=== PATIENT | female | born 1985 | race Caucasian/White ===

== ENCOUNTER → 2019-12-10 11:56 | Outpatient (BNVA) | payer SELFPAY | PROVIDERS: Visit Provider Nurse Practitioner | DX: R05 Cough (principal); J01.90 Acute sinusitis, unspecified | CPT/HCPCS: 87804 ==

== ENCOUNTER → 2020-07-08 13:06 | Outpatient (BNVA) | payer OTHER, SELFPAY | PROVIDERS: Visit Provider Nurse Practitioner Family | DX: Z11.59 Encounter for screening for other viral diseases (principal); J06.9 Acute upper respiratory infection, unspecified | CPT/HCPCS: 87635 ==

== ENCOUNTER → 2020-07-22 16:00 | Outpatient (BNVA) | payer OTHER, SELFPAY | PROVIDERS: Visit Provider Nurse Practitioner Family | DX: Z11.59 Encounter for screening for other viral diseases (principal); J06.9 Acute upper respiratory infection, unspecified | CPT/HCPCS: 87635 ==

== ENCOUNTER → 2020-09-25 15:07 | Outpatient (BNVA) | payer OTHER, SELFPAY | PROVIDERS: Visit Provider Nurse Practitioner | DX: Z20.828 Contact with and (suspected) exposure to other viral communicable diseases (principal) | CPT/HCPCS: 87635 ==

== ENCOUNTER → 2021-03-24 11:30 | Outpatient (BNVA) | payer OTHER, SELFPAY | PROVIDERS: Visit Provider Nurse Practitioner Family | DX: Z20.828 Contact with and (suspected) exposure to other viral communicable diseases (principal) | CPT/HCPCS: 87635 ==

== ENCOUNTER 2021-03-31 06:05 | Emergency (ER) | payer SELFPAY ==
[2021-03-31 06:18] VITALS: BP 111/70; PULSE 112; RESP 23; TEMP 37.2; O2SAT 97; BMI 46.9
[2021-03-31 06:23] VITALS: O2SAT 97
--- NOTE | 2021-03-31 06:24 | XRR_ITS ---
PROCEDURE INFORMATION: Exam: XR Chest Exam date and time: 03/31/2021 6:24 AM Age: 35 years old Clinical indication: Cough and dyspnea; Patient HX: SOB, coughing x 1 week, covid +; Additional info: Dyspnea/cough TECHNIQUE: Imaging protocol: XR of the chest. Views: 1 view. COMPARISON: CR Chest 2 views* [id number] 08/24/2019 9:47 AM FINDINGS: Lungs: No consolidation. Pleural spaces: Unremarkable. No pleural effusion. No pneumothorax. Heart/Mediastinum: No cardiomegaly. Bones/joints: No acute fracture. XR/XR chest 1V portable [id number] IMPRESSION: No acute findings.
--- NOTE | 2021-03-31 06:36 | W.ED.COVID ---
HPI - COVID General: Chief Complaint: COVID symptoms Stated Complaint: COVID +/HAVING TROUBLE BREATHING Time Seen by Provider: 03/31/21 06:16 Triage information: Has fever, cough or shortness of breath. Exposure to COVID + person last 14 days History of Present Illness: HPI Narrative: 35-year-old female presents emergency room with complaint of shortness of breath. She began having Covid symptoms 9 days ago. She tested +5 days ago. She is not currently taking any treatment she does use albuterol as needed she has a history of asthma she feels like the albuterol is not helping. When I first came to see the patient she is hyperventilating. MD complaint: known COVID positive Prior covid testing: yes, results known Prior testing date: 03/26/21 COVID 19 common symptoms: positive fever(s), chills, cough, non-productive cough, dyspnea, fatigue, body aches, headache(s), loss of sense of smell and/or taste, throat pain, nasal congestion and nausea COVID 19 other sytmptoms: positive chest pain and pleuritic pain; negative requiring oxygen Onset (ago): day(s) (9) Severity: mild Pertinent comorbid conditions: COPD/respiratory disease Treatment prior to arrival: acetaminophen and breathing treatments COVID Results: SARS-CoV-2 RNA (RT-PCR) Detected (NOT DETECTED) A 03/24/21 11:30 03/24/21 Review of Systems Const: Reports: fever(s), chills, body aches and fatigue ENMT: Reports: throat pain and nasal congestion Card: Reports: chest pain and dyspnea on exertion; Denies: edema or orthopnea Resp: Reports: dyspnea and non-productive cough GI: Reports: nausea : Denies: flank pain, difficulty voiding, dysuria, urinary frequency or urinary urgency Skin/Breast: Denies: rash or pruritus Neuro: Reports: headache(s) PFSH ED PFSH: Medical History (Updated 03/31/21 @ 06:40 by Josh Walter DO) Asthma exacerbation Social History Smoking and tobacco status: never smoked Alcohol intake: never Female Reproductive History: Date of last menstrual period: 03/20/21 Physical Exam Const: COMMON NORMALS: no acute distress GENERAL APPEARANCE: cooperative ORIENTATION/CONSCIOUSNESS: Yes awake, Yes oriented to person, Yes oriented to place and Yes oriented to time HENMT: COMMON NORMALS: normocephalic, atraumatic and hearing grossly normal bilaterally HEAD & SCALP: normocephalic and atraumatic Neck/C-Spine: COMMON NORMALS: no JVD Resp: COMMON NORMALS: normal respiratory effort, No retractions, No use of accessory muscles and clear to auscultation bilaterally AUSCULTATION: clear to auscultation bilaterally Cardio: COMMON NORMALS: no JVD, regular rate, regular rhythm and No murmurs present (Cardio) RATE: regular rate RHYTHM: regular rhythm GI: COMMON NORMALS: Soft to palpation and No hepatosplenomegaly present AUSCULTATION: Yes normoactive bowel sounds PALPATION: Yes Soft to palpation, No Tenderness to palpation present (GI), No Guarding due to palpation present (GI) and Yes No hepatosplenomegaly present Extremity: COMMON NORMALS: normal to inspection, capillary refill normal, no clubbing, cyanosis or edema, no calf tenderness and no pedal edema Neuro: SENSORIUM/ORIENTATION: Yes oriented to person, Yes oriented to place and Yes oriented to time Skin: COMMON NORMALS: no rashes or lesions noted GENERAL SKIN EXAM: no rashes or lesions noted Course Vital Signs: Vital signs: Vital Signs Temperature 99.9 F H 03/31/21 08:11 Pulse Rate 103 H 03/31/21 08:11 Respiratory Rate 20 H 03/31/21 08:11 Blood Pressure 121/77 03/31/21 08:11 Pulse Oximetry 95 03/31/21 08:11 MDM - COVID MDM Narrative: Medical decision making narrative: Patient has symptoms typical of Covid she is very stable lung sounds are actually normal at this point. At the moment she is hyperventilating. Coached patient on her hyperventilation. She does qualify for monoclonal antibody infusion discussed risk benefits alternatives with her she wishes to proceed we will infuse now. COVID Results: SARS-CoV-2 RNA (RT-PCR) Detected (NOT DETECTED) A 03/24/21 11:30 03/24/21 Monoclonal Antibody Treatments Inclusion/Exclusion Criteria weight >/= 40 kg and + direct Sars-Cov-2 test less than 7-10 days ago BMI >/= 35 not requiring hospitalization, not requiring oxygen (if not chronically on oxygen) and no increase oxygen requirement (if chronically on oxygen) Patient education patient/family/caregiver received/reviewed fact sheet, Emergency Use Authorization/unapproved drug status discussed with patient/family/caregiver, alternatives to this treatment discussed with patient/family/caregiver, risks and benefits of medication reviewed with patient/family/caregiver, patient/family/caregiver given opportunity for questions, which were answered and patient consents to receiving Monoclonal Antibody Treatment Plan for treatment Meets criteria for Monoclonal Antibody infusion Ordering Monoclonal Antibody infusion for today Discharge Plan Discharge Patient Disposition: Home Condition: Stable Prescriptions: New dexamethasone 6 mg tablet 6 mg PO DAILY Qty: 7 RF: 0 No Action albuterol sulfate 2.5 mg /3 mL (0.083 %) solution for nebulization 2.5 mg continuous nebulization ONCE Qty: 1 RF: 0 albuterol sulfate [Ventolin HFA] 90 mcg/actuation HFA aerosol inhaler 2 puff INHALATION QID PRN (Reason: shortness of breath or wheezing) Qty: 8.5 RF: 0 Discharge Orders: Discharge ED (Routine); Ordered 03/31/21 Ordered By: Josh Walter Patient Instructions: Opioid Safety Coding Level of Care Code ED [facility] Demonstrator for Chg Fwd Exam Comprehensive
[2021-03-31 07:31] VITALS: BP 102/69; PULSE 100; RESP 15; O2SAT 97
[2021-03-31 08:11] VITALS: BP 121/77; PULSE 103; RESP 20; TEMP 37.7; O2SAT 95
[2021-03-31 08:37] VITALS: BP 126/62; PULSE 95; RESP 17; TEMP 37.7; O2SAT 97
[2021-03-31 09:41] VITALS: BP 130/72; PULSE 112; RESP 17; O2SAT 97
== END 2021-03-31 09:46 | disposition home or self-care (01) ==
PROVIDERS: Emergency Provider Family Medicine
DX: R06.02 Shortness of breath (principal)
CPT/HCPCS: 71045; 96365; 99284; J7050

== ENCOUNTER → 2021-07-09 12:04 | Outpatient (BNVA) | payer SELFPAY | PROVIDERS: Visit Provider Family Medicine | DX: F41.1 Generalized anxiety disorder (principal); F41.0 Panic disorder [episodic paroxysmal anxiety]; L65.9 Nonscarring hair loss, unspecified; Z68.43 Body mass index [BMI] 50.0-59.9, adult; Z13.6 Encounter for screening for cardiovascular disorders; Z13.220 Encounter for screening for lipoid disorders; Z76.89 Persons encountering health services in other specified circumstances | CPT/HCPCS: 80053; 80061; 83036; 84443; 85025 ==

== ENCOUNTER → 2021-07-29 13:01 | Outpatient (BNVA) | payer SELFPAY | PROVIDERS: Visit Provider Nurse Practitioner | DX: J02.9 Acute pharyngitis, unspecified (principal) | CPT/HCPCS: 87880 ==

== ENCOUNTER → 2021-09-29 15:41 | Outpatient (BNVA) | payer OTHER, SELFPAY | PROVIDERS: PCP Family Medicine; Visit Provider Family Medicine | DX: Z20.822 Contact with and (suspected) exposure to COVID-19 (principal); Z20.828 Contact with and (suspected) exposure to other viral communicable diseases | CPT/HCPCS: 87635 ==

== ENCOUNTER 2021-11-24 07:36 | Emergency (ER) | payer SELFPAY ==
[2021-11-24 07:44] VITALS: BMI 52.7
[2021-11-24 07:47] VITALS: BP 156/69; PULSE 84; RESP 16; TEMP 36.8; O2SAT 95
--- NOTE | 2021-11-24 07:47 | ED_ITS ---
Documented by User: ARLIN Perez 11/24/21 13:00 HPI - Abdominal Pain General: Chief Complaint: Abdominal Pain Stated Complaint: abdomen pain Time Seen by Provider: 11/24/21 07:47 Source: patient Mode of arrival: ambulatory Limitations: no limitations History of Present Illness: Patient is a 36-year-old female who presents to ED today along with her significant other for concerns of lower abdominal/pelvic pain that began in the middle of the night and awoke her from sleep. She describes the sensation as a burning sensation across her lower abdomen and pelvis. She denies dysuria, frequency, urgency, hematuria. No flank pain. Patient is not having any vaginal bleeding, vaginal odor/discharge, or painful intercourse. LMP was at the beginning of this month and described as normal. Patient has the Essure permanent control device that was placed approxim ately 9 years ago. She has not noticed any fevers, chills, body aches. No rash or lesions. She feels slightly nauseous but has not had any episodes of emesis. No changes to bowel movements. MD elicited complaint: abdominal pain Pertinent past history: none Onset (ago): hour(s) Location: RLQ, LLQ, Suprapubic and Pelvis Quality: burning Radiation: none Migration to: no migration Exacerbating factors: movement and other (certain positions) Relieving factors: other (states curling her legs up into a ball seems to slightly help) Associated Symptoms: Reports nausea; Denies change in bowel habits, change in stool character, chills, diarrhea, dysuria, fever(s), heartburn, hematuria and vomiting Related Data: Date of Last Menstrual Period: 11/06/21 Review of Systems Const: Denies: fever(s), chills, body aches, fatigue or malaise Card: Denies: chest pain Resp: Denies: dyspnea GI: Reports: abdominal pain and nausea; Denies: vomiting, heartburn, diarrhea, change in bowel habits, pain on defec ation or change in stool character : Denies: flank pain, difficulty voiding, dysuria, urinary frequency, urinary urgency, hematuria, genital lesions, genital pruritis, vaginal odor, vaginal bleeding, vaginal discharge or metrorrhagia Musc: Denies: neck pain, back pain, extremity pain or joint pain Skin/Breast: Denies: rash Neuro: Denies: headache(s), numbness in extremities, weakness in extremities or sensory changes [facility] ED PFSH: Medical History (Updated 11/24/21 @ 11:28 by ARLIN Perez) Asthma exacerbation Establishing care with new doctor, encounter for Social History Smoking and tobacco status: never smoked Alcohol intake: never Female Reproductive History: Date of last menstrual period: 11/06/21 Physical Exam Const: COMMON NORMALS: patient oriented x3, no limitations and alert GENERAL APPEARANCE: in distress (appears slightly uncomfortable secondary to pain) NUTRITIONAL APPEARANCE: obese morbidly obese (BMI > 52) ORIENTATION/CONSCIOUSNESS: Yes awake, Yes oriented to person, Yes oriented to place and Yes oriented to time HENMT: COMMON NORMALS: normocephalic and atraumatic HEAD & SCALP: normocephalic and atraumatic Resp: COMMON NORMALS: normal respiratory effort and clear to auscultation bilaterally AUSCULTATION: clear to auscultation bilaterally Cardio: COMMON NORMALS: regular rate and regular rhythm RATE: regular rate RHYTHM: regular rhythm GI: COMMON NORMALS: Normal to inspection, nondistended, normoactive bowel so unds present, Soft to palpation, No hepatosplenomegaly present and no masses INSPECTION: Yes normal to inspection PALPATION: Yes Soft to palpation, Yes Tenderness to palpation present (GI) (throughout lower abdomen), No Guarding due to palpation present (GI), No Rigid due to palpation and Yes No hepatosplenomegaly present : COMMON NORMALS: Yes no CVA tenderness BLADDER/KIDNEY EXAM: Yes no CVA tenderness Back/Pelvis: COMMON NORMALS: no CVA tenderness, thoracic and lumbar spine normal to inspection, no thoracic nor lumbar tenderness and thoraco-lumbar ROM normal Extremity: COMMON NORMALS: normal to inspection GENERAL: Yes normal exam except as noted Neuro: ELIJAH COMA SCALE: document GCS findings Elijah coma scale eye opening: Spontaneous [place] coma scale verbal response: Orientated Elijah coma scale motor response: Obey commands Elijah coma scale total score: 15 COMMON NORMALS: patient oriented x3, moves all extremities, no focal motor deficits, no sensory deficits noted and gait normal SENSORIUM/ORIENTATION: Yes alert, Yes oriented to person, Yes oriented to place and Yes oriented to time Skin: COMMON NORMALS: no rashes or lesions noted GENERAL SKIN EXAM: no rashes or lesions noted Course Vital Signs: Vital signs: Vital Signs Temperature 98.2 F 11/24/21 07:47 Pulse Rate 74 11/24/21 11:41 Respiratory Rate 16 11/24/21 11:41 Blood Pressure 123/65 11/24/21 11:41 Pulse Oximetry 95 11/24/21 11:41 MDM - Abdominal Pain Medical Decision Making Patient's vital signs are stable. Lab work including CBC, CMP, UA, are overall unremarkable. She has a normal white count. UA does not appear infected. US transvaginal showing a left ovarian cyst. Did not visualize right ovary. CT scan overall is normal. Incidental findings of hepatomegaly and a small umbilical hernia. I did speak to Dr. Sánchez as they could not visualize right ovary on the ultrasound. She was able to visualize ovary on CT imaging and did not see any findings that would suggest torsion. At this point juve mmend close observation of symptoms at home and strict return to ED precautions verbally given to patient. Otherwise recommended follow-up with PCP this week. Lab Data : 11/24/21 08:42 11/24/21 08:42 Labs/Radiology: Radiology Impressions Transvaginal US 11/24/21 08:02 IMPRESSION: 1. Normal uterus. Endometrium measures 7.1 mm. 2. Simple LEFT ovarian cyst measuring 1.7 x 2.0 x 1.5 cm 3. RIGHT ovary not visualized Abdomen/Pelvis CT 11/24/21 09:12 IMPRESSION: 1. Normal appendix. 2. No GI tract obstruction or acute inflammation. 3. No free air or free fluid. 4. Prior cholecystectomy. 5. Moderate hepatomegaly. 6. Small fat-containing umbilical hernia. 7. Prior Essure inserts. Laboratory Results WBC 8.7 10^3/uL (4.0-10.0) 11/24/21 08:42 RBC 4.60 10^6/uL (4.1-5.3) 11/24/21 08:42 Hgb 13.3 g/dL (11.5-15.3) 11/24/21 08:42 Hct 40.9 % (37.0-47.0) 11/24/21 08:42 MCV 88.9 fl (81-99) 11/24/21 08:42 MCH 28.9 pg (28.0-34.0) 11/24/21 08:42 MCHC 32.5 g/dL (30.0-36.0) 11/24/21 08:42 RDW 13.2 % (12.1-15.1) 11/24/21 08:42 Plt Count 292 10^3/cmm (130-400) 11/24/21 08:42 MPV 11.4 fL (7.4-10.4) H 11/24/21 08:42 Neut % (Auto) 58.8 % 11/24/21 08:42 Lymph % (Auto) 32.3 % 11/24/21 08:42 [place] % (Auto) 6.2 % 11/24/21 08:42 Eos % (Auto) 1.6 % 11/24/21 08:42 Baso % (Auto) 0.6 % 11/24/21 08:42 Neut # (Auto) 5.10 10^3/uL (1.8-7.7) 11/24/21 08:42 Lymph # (Auto) 2.8 10^3/uL (0.8-4.8) 11/24/21 08:42 [place] # (Auto) 0.5 10^3/uL (0.2-0.9) 11/24/21 08:42 Eos # (Auto) 0.1 10^3/uL (0.0-0.8) 11/24/21 08:42 Baso # (Auto) 0.1 10^3/uL (0.0-0.1) 11/24/21 08:42 Nucleated RBC % (auto) 0 % 11/24/21 08:42 Nucleated RBCs # 0.0 /100WBC 11/24/21 08:42 Sodium 137 mmol/L (136-145) 11/24/21 08:42 Potassium 4.1 mmol/L (3.5-5.1) 11/24/21 08:42 Chloride 104 mmol/L (98-107) 11/24/21 08:42 Carbon Dioxide 21 mmol/L (22-29) L 11/24/21 08:42 Anion Gap 16.1 (5-19) 11/24/21 08:42 BUN 9 mg/dL (6-20) 11/24/21 08:42 Creatinine 0.4 mg/dL (0.5-0.9) L 11/24/21 08:42 GFR Calculation 182.7 mL/min (90-130) H 11/24/21 08:42 Glucose 104 mg/dL (65-115) 11/24/21 08:42 Calculated Osmolality 283 mOsm/kg (285-295) L 11/24/21 08:42 Calcium 9.4 mg/dL (8.5-10.5) 11/24/21 08:42 Total Bilirubin 0.3 mg/dL (0.15-1.2) 11/24/21 08:42 AST 22 U/L (0-32) 11/24/21 08:42 ALT 34 U/L (0-33) H 11/24/21 08:42 Alkaline Phosphatase 117 IU/L (35-105) H 11/24/21 08:42 Total Protein 7.3 g/dL (6.6-8.7) 11/24/21 08:42 Albumin 4.3 g/dL (3.5-5.2) 11/24/21 08:42 Globulin 3.0 g/dL (1.3-4.6) 11/24/21 08:42 HCG, Qual Negative (Negative) 11/24/21 08:42 Urine Color Straw (Yellow) 11/24/21 07:50 Urine Appearance Clear (CLEAR) 11/24/21 07:50 Urine pH 5 (5-7) 11/24/21 07:50 Ur Specific [place] 1.015 (1.005-1.030) 11/24/21 07:50 Urine Protein Neg (Negative) 11/24/21 07:50 Urine Glucose (UA) Norm (Normal) 11/24/21 07:50 Urine Ketones Negative (Negative) 11/24/21 07:50 Urine Blood Trace (Negative) H 11/24/21 07:50 Urine Nitrate Negative (Negative) 11/24/21 07:50 Urine Bilirubin Neg (Negative) 11/24/21 07:50 Urine Urobilinogen Norm mg/dL (Negative) 11/24/21 07:50 Ur Leukocyte Esterase Negative (Negative) 11/24/21 07:50 Urine RBC Rare /hpf (0-2) 11/24/21 07:50 Urine WBC None /hpf (0-5) 11/24/21 07:50 Ur Squamous Epith Cells 5-10 /hpf (0-5) H 11/24/21 07:50 Amorphous Sediment Not Reportable 11/24/21 07:50 Urine Bacteria Trace /hpf (NONE) 11/24/21 07:50 Discharge Plan Discharge Patient Disposition: Home Clinical Impression: Lower abdominal pain of unknown etiology Condition: Stable Prescriptions: New Zofran 4 mg tablet 4 mg PO Q6H PRN (Reason: nausea and vomiting) Qty: 14 0RF No Action meclizine 25 mg tablet 25 mg PO BID PRN (Reason: dizziness) Qty: 10 0RF citalopram 20 mg tablet 20 mg PO DAILY Qty: 30 5RF Pepcid 20 mg Tablet 20 mg PO BID 0RF Discharge Orders: Discharge ED (Routine); Ordered 11/24/21 Ordered By: Destiny Hill Referrals: Ermias Hsu DO [Primary Care Provider] - Patient Instructions: Abdominal Pain (ED) Activity Restrictions/Additional Instructions: As we discussed please follow-up with your primary care provider this week if symptoms persist. You need to return to the emergency department for worsening lower abdominal/pelvic pain, fevers greater than 100.4, repetitive episodes of vomiting or diarrhea, blood in your vomit or stools, generally feeling unwell, or any other concerns you may have. I hope you begin to feel better soon. Coding Level of Care Code ED Berry Picker for Chg Fwd Exam Comprehensive Documented by User: Josh Walter DO 11/24/21 13:47 HPI - Abdominal Pain General: Chief Complaint: Abdominal Pain Stated Complaint: abdomen pain Time Seen by Provider: 11/24/21 07:47 [facility] ED PFSH: Medical History (Updated 11/24/21 @ 11:28 by ARLIN Perez) Asthma exacerbation Establishing care with new doctor, encounter for Social History Smoking and tobacco status: never smoked Alcohol intake: never Physical Exam Neuro: ELIJAH COMA SCALE: document GCS findings [place] coma scale total score: 15 Course Vital Signs: Vital signs: Vital Signs Temperature 98.2 F 11/24/21 07:47 Pulse Rate 74 11/24/21 11:41 Respiratory Rate 16 11/24/21 11:41 Blood Pressure 123/65 11/24/21 11:41 Pulse Oximetry 95 11/24/21 11:41 MDM - Abdominal Pain Medical Decision Making Patient's vital signs are stable. Lab work including CBC, CMP, UA, are overall unremarkable. She has a normal white count. UA does not appear infected. US transvaginal showing a left ovarian cyst. Did not visualize right ovary. CT scan overall is normal. Incidental findings of hepatomegaly and a small umbilical hernia. I did speak to Dr. Sánchez as they could not visualize right ovary on the ultrasound. She was able to visualize ovary on CT imaging and did not see any findings that would suggest torsion. At this point recommend close observation of symptoms at home and strict return to ED precautions verbally given to patient. Otherwise recommended follow-up with PCP this week. Chart reviewed and patient discussed with midlevel. Agree with assessment and plan. Lab Data : 11/24/21 08:42 11/24/21 08:42 Labs/Radiology: Radiology Impressions Transvaginal US 11/24/21 08:02 IMPRESSION: 1. Normal uterus. Endometrium measures 7.1 mm. 2. Simple LEFT ovarian cyst measuring 1.7 x 2.0 x 1.5 cm 3. RIGHT ovary not visualized Abdomen/Pelvis CT 11/24/21 09:12 IMPRESSION: 1. Normal appendix. 2. No GI tract obstruction or acute inflammation. 3. No free air or free fluid. 4. Prior cholecystectomy. 5. Moderate hepatomegaly. 6. Small fat-containing umbilical hernia. 7. Prior Essure inserts. Laboratory Results WBC 8.7 10^3/uL (4.0-10.0) 11/24/21 08:42 RBC 4.60 10^6/uL (4.1-5.3) 11/24/21 08:42 Hgb 13.3 g/dL (11.5-15.3) 11/24/21 08:42 Hct 40.9 % (37.0-47.0) 11/24/21 08:42 MCV 88.9 fl (81-99) 11/24/21 08:42 MCH 28.9 pg (28.0-34.0) 11/24/21 08:42 MCHC 32.5 g/dL (30.0-36.0) 11/24/21 08:42 RDW 13.2 % (12.1-15.1) 11/24/21 08:42 Plt Count 292 10^3/cmm (130-400) 11/24/21 08:42 MPV 11.4 fL (7.4-10.4) H 11/24/21 08:42 Neut % (Auto) 58.8 % 11/24/21 08:42 Lymph % (Auto) 32.3 % 11/24/21 08:42 [place] % (Auto) 6.2 % 11/24/21 08:42 Eos % (Auto) 1.6 % 11/24/21 08:42 Baso % (Auto) 0.6 % 11/24/21 08:42 Neut # (Auto) 5.10 10^3/uL (1.8-7.7) 11/24/21 08:42 Lymph # (Auto) 2.8 10^3/uL (0.8-4.8) 11/24/21 08:42 [place] # (Auto) 0.5 10^3/uL (0.2-0.9) 11/24/21 08:42 Eos # (Auto) 0.1 10^3/uL (0.0-0.8) 11/24/21 08:42 Baso # (Auto) 0.1 10^3/uL (0.0-0.1) 11/24/21 08:42 Nucleated RBC % (auto) 0 % 11/24/21 08:42 Nucleated RBCs # 0.0 /100WBC 11/24/21 08:42 Sodium 137 mmol/L (136-145) 11/24/21 08:42 Potassium 4.1 mmol/L (3.5-5.1) 11/24/21 08:42 Chloride 104 mmol/L (98-107) 11/24/21 08:42 Carbon Dioxide 21 mmol/L (22-29) L 11/24/21 08:42 Anion Gap 16.1 (5-19) 11/24/21 08:42 BUN 9 mg/dL (6-20) 11/24/21 08:42 Creatinine 0.4 mg/dL (0.5-0.9) L 11/24/21 08:42 GFR Calculation 182.7 mL/min (90-130) H 11/24/21 08:42 Glucose 104 mg/dL (65-115) 11/24/21 08:42 Calculated Osmolality 283 mOsm/kg (285-295) L 11/24/21 08:42 Calcium 9.4 mg/dL (8.5-10.5) 11/24/21 08:42 Total Bilirubin 0.3 mg/dL (0.15-1.2) 11/24/21 08:42 AST 22 U/L (0-32) 11/24/21 08:42 ALT 34 U/L (0-33) H 11/24/21 08:42 Alkaline Phosphatase 117 IU/L (35-105) H 11/24/21 08:42 Total Protein 7.3 g/dL (6.6-8.7) 11/24/21 08:42 Albumin 4.3 g/dL (3.5-5.2) 11/24/21 08:42 Globulin 3.0 g/dL (1.3-4.6) 11/24/21 08:42 HCG, Qual Negative (Negative) 11/24/21 08:42 Urine Color Straw (Yellow) 11/24/21 07:50 Urine Appearance Clear (CLEAR) 11/24/21 07:50 Urine pH 5 (5-7) 11/24/21 07:50 Ur Specific [place] 1.015 (1.005-1.030) 11/24/21 07:50 Urine Protein Neg (Negative) 11/24/21 07:50 Urine Glucose (UA) Norm (Normal) 11/24/21 07:50 Urine Ketones Negative (Negative) 11/24/21 07:50 Urine Blood Trace (Negative) H 11/24/21 07:50 Urine Nitrate Negative (Negative) 11/24/21 07:50 Urine Bilirubin Neg (Negative) 11/24/21 07:50 Urine Urobilinogen Norm mg/dL (Negative) 11/24/21 07:50 Ur Leukocyte Esterase Negative (Negative) 11/24/21 07:50 Urine RBC Rare /hpf (0-2) 11/24/21 07:50 Urine WBC None /hpf (0-5) 11/24/21 07:50 Ur Squamous Epith Cells 5-10 /hpf (0-5) H 11/24/21 07:50 Amorphous Sediment Not Reportable 11/24/21 07:50 Urine Bacteria Trace /hpf (NONE) 11/24/21 07:50 Discharge Plan Discharge Patient Disposition: Home Clinical Impression: Lower abdominal pain of unknown etiology Condition: Stable Prescriptions: New Zofran 4 mg tablet 4 mg PO Q6H PRN (Reason: nausea and vomiting) Qty: 14 0RF No Action meclizine 25 mg tablet 25 mg PO BID PRN (Reason: dizziness) Qty: 10 0RF citalopram 20 mg tablet 20 mg PO DAILY Qty: 30 5RF Pepcid 20 mg Tablet 20 mg PO BID 0RF Discharge Orders: Discharge ED (Routine); Ordered 11/24/21 Ordered By: Destiny Hill Referrals: Ermias Hsu DO [Primary Care Provider] - Patient Instructions: Abdominal Pain (ED) Activity Restrictions/Additional Instructions: As we discussed please follow-up with your primary care provider this week if s ymptoms persist. You need to return to the emergency department for worsening lower abdominal/pelvic pain, fevers greater than 100.4, repetitive episodes of vomiting or diarrhea, blood in your vomit or stools, generally feeling unwell, or any other concerns you may have. I hope you begin to feel better soon. Coding Level of Care Code ED Berry Picker for Diane Fwd Exam Comprehensive
--- NOTE | 2021-11-24 08:02 | US_ITS ---
WS: [id number] ULTRASOUND PELVIS TECHNIQUE: Transvaginal. CLINICAL INFORMATION: pelvic pain LMP: : No. COMPARISON: None. FINDINGS: Uterus Orientation: Anteverted. Size: 10.0 x 4.1 x 4.8 cm Masses: None. Cervix: Normal. Endometrium: Normal. Endometrium thickness: 7.1 mm. Adnexa: RIGHT ovary not visualized. Simple LEFT ovarian cyst measuring 1.7 x 2.0 x 1.5 cm Left ovary size: 3.3 x 3.1 x 2.6 cm Free fluid: None. Other findings: None. US/US transvaginal [id number] IMPRESSION: 1. Normal uterus. Endometrium measures 7.1 mm. 2. Simple LEFT ovarian cyst measuring 1.7 x 2.0 x 1.5 cm 3. RIGHT ovary not visualized
[2021-11-24 08:21] LABS: Add Urine Culture? No; Add Urine Microscopic? YES; Bacteria Urine TRACE /hpf; Bilirubin Urine Neg (Negative); Blood Urine Trace (Negative); Glucose Urine UA Norm (Normal); Ketones Urine Negative (Negative); Leukocyte Esterase Urine Negative (Negative); Nitrate Urine Negative (Negative); Protein Urine Neg (Negative); RBC Urine RARE /hpf (0-2); Specific Gravity, Urine 1.015 (1.005-1.030); Urine Appearance Clear (CLEAR); Urine Color Straw (Yellow); Urobilinogen Urine Norm (Negative); pH Urine 5 (5-7)
[2021-11-24 08:50] LABS: Basophils # 0.1 10^3/uL (0.0-0.1); Basophils % 0.6 %; Eosinophils # 0.1 10^3/uL (0.0-0.8); Eosinophils % 1.6 %; Hematocrit 40.9 % (37.0-47.0); Hemoglobin 13.3 g/dL (11.5-15.3); Lymphocytes # 2.8 10^3/uL (0.8-4.8); Lymphocytes % 32.3 %; Mean Corpuscular HGB Conc 32.5 g/dL (30.0-36.0); Mean Corpuscular Hemoglobin 28.9 pg (28.0-34.0); Mean Corpuscular Volume 88.9 fl (81-99); Mean Platelet Volume 11.4 fL (7.4-10.4); Monocytes # 0.5 10^3/uL (0.2-0.9); Monocytes % 6.2 %; Neutrophils % 58.8 %; Nucleated Red Blood Cells % 0 %; Platelet Count 292 10^3/cmm (130-400); Red Cell Distribution Width 13.2 % (12.1-15.1); White Blood Count 8.7 10^3/uL (4.0-10.0)
--- NOTE | 2021-11-24 09:12 | CT_ITS ---
WS: [id number] CT ABDOMEN AND PELVIS WITH CONTRAST HISTORY: lower abdominal pain TECHNIQUE: Imaging performed of the abdomen and pelvis with IV contrast. Single phase imaging of the abdomen. Coronal and sagittal reformats are submitted. All CT scans at [facility] use at [address] one of these dose optimization techniques: automated exposure control; mA and/or kV adjustment per patient size (includes targeted exams where dose is matched to clinical indication); or iterative re construction. IV CONTRAST: Omnipaque 300; 95 mL IV. Oral contrast: No DLP: 1870.45 mGy.cm COMPARISON: 6 11/29/2016 Lower thorax: Lung bases are clear. Heart is normal size. No hiatal hernia. Liver/biliary system: Moderately enlarged liver measuring 20 cm in length. No bile duct dilatation or mass. Common bile duct is normal size. Gallbladder: Status post cholecystectomy. Pancreas: Normal size pancreas and pancreatic duct. No adjacent inflammation. Spleen: Normal size spleen. No mass or infarct. Posterior splenule. Adrenal glands: Normal. Right kidney: Normal. Left kidney: Normal. Aorta: Normal. Lymphadenopathy: None. Free fluid: None. GI tract: No appendicitis. The appendix is well identified and normal. Nondistended stomach. No small bowel or colon obstruction. No significant amount of increased fluid. Abdominal wall: Fat containing umbilical hernia. Pelvis: No there is a small amount of fluid along the endometrial canal. May be related to menses. LE FT ovarian follicle. No adenopathy. Free fluid in the pelvis. Uterus is anteverted. Bilateral a short Bones: Unremarkable. CT/CT abdomen pelvis w con* [id number] IMPRESSION: 1. Normal appendix. 2. No GI tract obstruction or acute inflammation. 3. No free air or free fluid. 4. Prior cholecystectomy. 5. Moderate hepatomegaly. 6. Small fat-containing umbilical hernia. 7. Prior Essure inserts.
[2021-11-24 09:15] LABS: Alanine Aminotransferase 34 U/L (0-33); Albumin Level 4.3 g/dL (3.5-5.2); Alkaline Phosphatase 117 IU/L (35-105); Anion Gap 16.1 (5-19); Aspartate Amino Transferase 22 U/L (0-32); Blood Urea Nitrogen 9 mg/dL (6-20); Calcium 9.4 mg/dL (8.5-10.5); Carbon Dioxide 21 mmol/L (22-29); Chloride 104 mmol/L (98-107); Glomerular Filtration Rate 182.7 mL/min (90-130); Glucose 104 mg/dL (65-115); Osmolality Calculated 283 mOsm/kg (285-295); Potassium 4.1 mmol/L (3.5-5.1); Sodium 137 mmol/L (136-145); Total Bilirubin 0.3 mg/dL (0.15-1.2); Total Protein 7.3 g/dL (6.6-8.7)
[2021-11-24 09:20] LABS: HCG, Serum Qual Negative (Negative)
[2021-11-24 09:31] VITALS: BP 121/63; PULSE 60; RESP 16; O2SAT 97
[2021-11-24 10:21] VITALS: BP 109/55; PULSE 68; RESP 18; O2SAT 95
[2021-11-24] MEDS: iohexol 300 mg/mL 100 mL Btl IV (10:52)
[2021-11-24 11:41] VITALS: BP 123/65; PULSE 74; RESP 16; O2SAT 95
== END 2021-11-24 11:42 | disposition home or self-care (01) ==
PROVIDERS: Emergency Provider Physician Assistant; PCP Family Medicine
DX: R10.30 Lower abdominal pain, unspecified (principal)
CPT/HCPCS: 74177; 76830; 80053; 81001; 84703; 85025; 99283; Q9967

== ENCOUNTER 2022-04-13 08:01 | Emergency (ER) | payer SELFPAY ==
[2022-04-13 08:08] VITALS: BP 143/74; PULSE 70; RESP 18; TEMP 36.6; O2SAT 98; BMI 52.6
[2022-04-13] MEDS: promethazine 25 mg/mL SDV 1 mL IM (08:39)
[2022-04-13] MEDS: ketorolac 30 mg/mL INJ IVP (08:39)
--- NOTE | 2022-04-13 08:40 | CT_ITS ---
WS: [id number] CT HEAD NONCONTRAST HISTORY: headache TECHNIQUE: Contiguous axial imaging performed through the brain in 2.5 mm imaging. Bone and soft tiss ue windows. Sagittal and coronal reformats reviewed. All CT scans at [facility] use at least one of these dose optimization techniques: automated exposure control; mA and/or kV adjustment per pa tient size (includes targeted exams where dose is matched to clinical indication); or iterative recon struction. DLP: 1109.48 mGy.cm COMPARISON: None available. No acute intracranial hemorrhage, midline shift or mass effect. No atrophy or prior infarcts or herniation. Ventricles: Normal size with no hydrocephalus. No inferior displacement of the cerebellar tonsils. Paranasal sinuses: As visualized are clear. Mastoid air cells: Well pneumatized. Calvarium and scalp: Skull is intact with no soft tissue edema or swelling. CT/CT head wo con* [id number] IMPRESSION: 1. No acute intracranial hemorrhage or edema. 2. No prior infarct. No mass effect.
[2022-04-13 08:43] VITALS: BP 155/58; PULSE 88; RESP 16; O2SAT 96
[2022-04-13] MEDS: sodium chloride 0.9% 1,000 ML 999 ML IV (08:54)
--- NOTE | 2022-04-13 09:11 | W.ED.HA ---
HPI - Headache General: Chief Complaint: Headache Stated Complaint: headache, dizziness, sob Time Seen by Provider: 04/13/22 08:13 Source: patient Mode of arrival: ambulatory Limitations: no limitations History of Present Illness: 36 yo female present with complaints of head ache and breif non-reponsive episode. she is complaining of bilateral forntal headache. No nausea or vomiting. She has been dizzy. She has a history of migraines states this is similar to migraine she had in the past but is more intense mild photophobia and autophobia. She has brief periods of time where she she is seems to blackout. She will be unable to respond for period time and then feels like she awakens again she cannot recall the events. MD elicited complaint: headache Pertinent past history: HIV Onset (ago): minute(s) Onset description: suddenly Location: frontal Severity: severe Quality & Timing: throbbing Exacerbating factors: light and noise Relieving factors: dark room Associated symptoms: Reports lightheadedness, photophobia and sound sensitivity; Deny chest pain, confusion, cough, diaphoresis, eye pain, eye redness, fever(s), loss of vision, malaise, nausea, neck stiffness, numbness, paresthesias, pre-syncope, rash, seizures, short of breath, syncope, vomiting or weakness Treatments prior to arrival: acetaminophen Review of Systems Const: Denies: fever(s), chills, fatigue, malaise or diaphoresis ENMT: Denies: throat pain, ear or mastoid pain, nasal discharge or nasal congestion Card: Reports: lightheadedness; Denies: chest pain, palpitations, syncope or pre-syncope Resp: Denies: dyspnea, productive cough or non-productive cough GI: Denies: abdominal pain, nausea or vomiting : Denies: flank pain, difficulty voiding, dysuria, urinary frequency or urinary urgency Musc: Denies: neck pain or back pain Skin/Breast: Denies: rash Neuro: Reports: headache(s); Denies: confusion PFSH ED PFSH: Medical History Asthma exacerbation Establishing care with new doctor, encounter for Social History Smoking and tobacco status: never smoked Alcohol intake: never Female Reproductive History: Date of last menstrual period: 11/06/21 Physical Exam Const: COMMON NORMALS: no acute distress GENERAL APPEARANCE: cooperative and comfortable ORIENTATION/CONSCIOUSNESS: Yes awake, Yes oriented to person, Yes oriented to place and Yes oriented to time HENMT: COMMON NORMALS: normocephalic, atraumatic, hearing grossly normal bilaterally, external ears normal, EAC's normal, TM's normal bilaterally, Normal nasal mucous membranes and turbinates present, moist oral mucous membranes and oropharynx normal HEAD & SCALP: normocephalic and atraumatic NOSE: Normal nasal mucous membranes and turbinates present EXTERNAL EAR: Yes external ears normal EXTERNAL AUDITORY CANAL: EAC's normal TYMPANIC MEMBRANE: TM's normal bilaterally Eye: COMMON NORMALS: Equal, round and reactive pupils present, EOMs intact bilaterally, conjunctivae normal and no scleral icterus CONJUNCTIVA: Yes conjunctivae normal PUPIL: Yes Equal, round and reactive pupils present DIRECT OPHTHALMOSCOPY: Yes photophobia Neck/C-Spine: COMMON NORMALS: full ROM, no lymphadenopathy, supple and no JVD Resp: COMMON NORMALS: normal respiratory effort, No retractions, No use of accessory muscles and clear to auscultation bilaterally AUSCULTATION: clear to auscultation bilaterally Cardio: COMMON NORMALS: no JVD, regular rate, regular rhythm and No murmurs present (Cardio) RATE: regular rate RHYTHM: regular rhythm GI: COMMON NORMALS: Soft to palpation and No hepatosplenomegaly present AUSCULTATION: Yes normoactive bowel sounds PALPATION: Yes Soft to palpation, No Tenderness to palpation present (GI), No Guarding due to palpation present (GI) and Yes No hepatosplenomegaly present Extremity: COMMON NORMALS: normal to inspection, capillary refill normal, no clubbing, cyanosis or edema, no calf tenderness and no pedal edema Neuro: SENSORIUM/ORIENTATION: Yes oriented to person, Yes oriented to place and Yes oriented to time Skin: COMMON NORMALS: no rashes or lesions noted GENERAL SKIN EXAM: no rashes or lesions noted Course Vital Signs: Vital signs: Vital Signs Temperature 98 F 04/13/22 08:08 Pulse Rate 58 L 04/13/22 10:46 Respiratory Rate 16 04/13/22 08:43 Blood Pressure 130/71 04/13/22 10:46 Pulse Oximetry 100 04/13/22 10:46 MDM - Headache Medical Decision Making Patient may very well be having absence seizure's. Her symptoms are improved now we will discharge her home follow-up with neurology set up outpatient EEG Medical Records I reviewed the patient's medical records. Lab Data : 04/13/22 09:21 04/13/22 09:[address] 04/13/22 08:40 IMPRESSION: 1. No acute intracranial hemorrhage or edema. 2. No prior infarct. No mass effect. Laboratory Results WBC 8.0 10^3/uL (4.0-10.0) 04/13/22 09:21 RBC 4.27 10^6/uL (4.1-5.3) 04/13/22 09:21 Hgb 12.3 g/dL (11.5-15.3) 04/13/22 09:21 Hct 38.2 % (37.0-47.0) 04/13/22 09:21 MCV 89.5 fl (81-99) 04/13/22 09:21 MCH 28.8 pg (28.0-34.0) 04/13/22 09:21 MCHC 32.2 g/dL (30.0-36.0) 04/13/22 09:21 RDW 13.1 % (12.1-15.1) 04/13/22 09:21 Plt Count 231 10^3/cmm (130-400) 04/13/22 09:21 MPV 11.4 fL (7.4-10.4) H 04/13/22 09:21 Neut % (Auto) 57.1 % 04/13/22 09:21 Lymph % (Auto) 33.3 % 04/13/22 09:21 [place] % (Auto) 7.3 % 04/13/22 09:21 Eos % (Auto) 1.5 % 04/13/22 09:21 Baso % (Auto) 0.5 % 04/13/22 09:21 Neut # (Auto) 4.54 10^3/uL (1.8-7.7) 04/13/22 09:21 Lymph # (Auto) 2.7 10^3/uL (0.8-4.8) 04/13/22 09:21 [place] # (Auto) 0.6 10^3/uL (0.2-0.9) 04/13/22 09:21 Eos # (Auto) 0.1 10^3/uL (0.0-0.8) 04/13/22 09:21 Baso # (Auto) 0.0 10^3/uL (0.0-0.1) 04/13/22 09:21 Nucleated RBC % (auto) 0 % 04/13/22 09:21 Nucleated RBCs # 0.0 /100WBC 04/13/22 09:21 Sodium 138 mmol/L (136-145) 04/13/22 09:21 Potassium 4.1 mmol/L (3.5-5.1) 04/13/22 09:21 Chloride 108 mmol/L (98-107) H 04/13/22 09:21 Carbon Dioxide 17 mmol/L (22-29) L 04/13/22 09:21 Anion Gap 17.1 (5-19) 04/13/22 09:21 BUN 13 mg/dL (6-20) 04/13/22 09:21 Creatinine 0.7 mg/dL (0.5-0.9) 04/13/22 09:21 GFR Calculation 95.8 mL/min (90-130) 04/13/22 09:21 Glucose 103 mg/dL (65-115) 04/13/22 09:21 Calculated Osmolality 286 mOsm/kg (285-295) 04/13/22 09:21 Calcium 8.3 mg/dL (8.5-10.5) L 04/13/22 09:21 Discharge Plan Discharge Patient Disposition: Home Clinical Impression: Migraine, Absence seizure Condition: Stable Prescriptions: No Action meclizine 25 mg tablet 25 mg PO BID PRN (Reason: dizziness) Qty: 10 0RF sumatriptan succinate 25 mg tablet See Rx Instructions PO .COMPLEX Qty: 10 3RF Rx Instructions: take 1 tab at onset of headache; if no relief may repeat 1 tab after at least 2 hrs; max = 4 tabs/24 hr PO topiramate [Topamax] 25 mg tablet 25 mg PO BID Qty: 60 2RF albuterol sulfate [Ventolin HFA] 90 mcg/actuation HFA aerosol inhaler 2 puff inhalation Q6H PRN (Reason: Shortness Of Breath) 0RF citalopram 20 mg tablet 20 mg PO DAILY Qty: 30 5RF famotidine [Pepcid] 20 mg Tablet 20 mg PO BID 0RF Advil 200 mg Tablet 200 mg PO Q6H PRN (Reason: Pain) 0RF Excedrin Migraine 250-250-65 mg Tablet 2 tab PO Q6H PRN (Reason: Migraine Headache) 0RF Discharge Orders: Discharge ED (Routine); Ordered 04/13/22 Ordered By: Josh Walter Referrals: Ermias Hsu DO [Primary Care Provider] - Discharge Diet: Usual diet Discharge Activity: Limit activity as instructed Patient Instructions: Opioid Safety Activity Restrictions/Additional Instructions: You may have had an absence seizure. You should not drive until this is fully evaluated. We will discharge her home and set up for an outpatient sleep deprived EEG and follow-up with neurology Coding Level of Care Code ED Mat Cleaning Machine Operator for Diane Fwd Exam Comprehensive
[2022-04-13 09:28] LABS: Basophils % 0.5 %; Eosinophils # 0.1 10^3/uL (0.0-0.8); Eosinophils % 1.5 %; Hematocrit 38.2 % (37.0-47.0); Hemoglobin 12.3 g/dL (11.5-15.3); Lymphocytes # 2.7 10^3/uL (0.8-4.8); Lymphocytes % 33.3 %; Mean Corpuscular HGB Conc 32.2 g/dL (30.0-36.0); Mean Corpuscular Hemoglobin 28.8 pg (28.0-34.0); Mean Corpuscular Volume 89.5 fl (81-99); Mean Platelet Volume 11.4 fL (7.4-10.4); Monocytes # 0.6 10^3/uL (0.2-0.9); Monocytes % 7.3 %; Neutrophils # 4.54 10^3/uL (1.8-7.7); Neutrophils % 57.1 %; Nucleated Red Blood Cells % 0 %; Platelet Count 231 10^3/cmm (130-400); Red Blood Count 4.27 10^6/uL (4.1-5.3); Red Cell Distribution Width 13.1 % (12.1-15.1)
[2022-04-13 09:45] LABS: Blood Urea Nitrogen 13 mg/dL (6-20); Calcium 8.3 mg/dL (8.5-10.5); Carbon Dioxide 17 mmol/L (22-29); Chloride 108 mmol/L (98-107); Creatinine Clr Calc Pharmacy 152.5386; Glomerular Filtration Rate 95.8 mL/min (90-130); Glucose 103 mg/dL (65-115); Osmolality Calculated 286 mOsm/kg (285-295); Sodium 138 mmol/L (136-145)
--- NOTE | 2022-04-13 10:01 | PC.PHAR ---
pts aggie verified pts medications
[2022-04-13 10:09] LABS: Anion Gap 17.1 (5-19); Potassium 4.1 mmol/L (3.5-5.1)
[2022-04-13 10:46] VITALS: BP 130/71; PULSE 58; O2SAT 100
--- NOTE | 2022-04-23 11:17 | DCPLANNER ---
Addendum entered by Stacey Soriano 09/24/22 10:36: both of these appointments were cancelled Addendum entered by Stacey Soriano 04/29/22 12:44: Patient has an EEG scheduled for Thursday, May 19, 2022 at 8:00 at neurology. Clinic will call patient with appointment information. Patient has a follow up appointment scheduled for Wednesday, August 24, 2022 at 8:[address] Parks at neurology. Clinic will call patient with appointment information. Original Note: technical support manager had message to schedule a follow up appointment for patient with neurology. technical support manager sent patients information to the front office staff at neurology. Patients information will be printed and reviewed. Clinic will call her with appointment information. technical support manager also had an order for sleep deprived EEG, window caser faxed signed order to the neurology clinic, who will call patient with appointment information.
== END 2022-04-13 10:48 | disposition home or self-care (01) ==
PROVIDERS: Emergency Provider Family Medicine; PCP Family Medicine
DX: G43.909 Migraine, unspecified, not intractable, without status migrainosus (principal); G40.A09 Absence epileptic syndrome, not intractable, without status epilepticus
CPT/HCPCS: 36415; 70450; 80048; 85025; 96372; 96374; 99285; J1885; J2550; J7030

== ENCOUNTER → 2022-04-30 17:31 | Outpatient (BNVA) | payer SELFPAY | PROVIDERS: PCP Family Medicine; Visit Provider Emergency Medicine | DX: J06.9 Acute upper respiratory infection, unspecified (principal); Z20.822 Contact with and (suspected) exposure to COVID-19 | CPT/HCPCS: 87426 ==

== ENCOUNTER → 2023-07-10 10:40 | Outpatient (BNVA) | payer SELFPAY | PROVIDERS: PCP Family Medicine; Visit Provider Emergency Medicine | DX: Z20.822 Contact with and (suspected) exposure to COVID-19 (principal); J06.9 Acute upper respiratory infection, unspecified | CPT/HCPCS: 87400; 87426 ==

== ENCOUNTER → 2023-11-03 10:54 | Outpatient (BNVA) | payer SELFPAY | PROVIDERS: PCP Family Medicine; Visit Provider Nurse Practitioner Family | DX: J02.9 Acute pharyngitis, unspecified (principal) | CPT/HCPCS: 87880 ==

== ENCOUNTER → 2023-12-24 10:35 | Outpatient (BNVA) | payer SELFPAY | PROVIDERS: PCP Family Medicine; Visit Provider Emergency Medicine | DX: J06.9 Acute upper respiratory infection, unspecified (principal) | CPT/HCPCS: 87400 ==

== ENCOUNTER 2023-12-26 08:21 | Emergency (ER) | payer SELFPAY ==
[2023-12-26 08:37] VITALS: BP 130/79; PULSE 83; TEMP 36.8; O2SAT 100; BMI 54.9
--- NOTE | 2023-12-26 09:27 | XRR_ITS ---
PROCEDURE INFORMATION: Exam: XR Chest Exam date and time: 12/26/2023 9:46 AM Age: 38 years old Clinical indication: Cough and dyspnea; Additional info: Cough, SOB TECHNIQUE: Imaging protocol: Radiologic exam of the chest. Views: 2 views. COMPARISON: CR XR chest 1V portable [id number] 03/31/2021 6:42 AM FINDINGS: Lungs: Unremarkable. No consolidation. Pleural spaces: Unremarkable. No pleural effusion. No pneumothorax. Heart/Mediastinum: Unremarkable. No cardiomegaly. Bones/joints: Unremarkable. XR/XR chest 2V* [id number] IMPRESSION: No acute findings.
--- NOTE | 2023-12-26 09:28 | ED_ITS ---
HPI - URI/Sore Throat General: Chief Complaint: Upper Respiratory Infection Stated Complaint: Cough, SOB Time Seen by Provider: 12/26/23 09:18 History of Present Illness: 38-year-old female with relevant comorbi dities of asthma and obesity who presents the emergency department reporting that she has had a upper respiratory tract infection with cough that has now led to an asthma exacerbation. Symptoms started on Wednesday or Wednesday of this last week. She was seen in the urgent care and tested for flu which was negative. She was given a steroid shot as well as some promethazine with dextromethorphan syrup. She has been using the syrup as well as albuterol inhaler. Last night she could not sleep because she had a constant dry hacking cough. The cough is also causing her to have a headache. This has happened to her before with significant asthma symptoms after URIs. She does not have it thermometer but thinks she may be having a temperature. No GI symptoms Associated symptoms: Deny abdominal pain, chills, chest pain, diarrhea, nausea or vomiting Review of Systems General: Reports: 10 or more systems reviewed and unremarkable except in HPI and below Const: Denies: chills Eyes: Denies: change in vision ENMT: Denies: uvular edema Card: Denies: chest pain, edema or syncope GI: Denies: abdominal pain, nausea, vomiting or diarrhea : Denies: flank pain, dysuria or urinary frequency Musc: Denies: back pain, extremity pain or extremity swelling Skin/Breast: Denies: rash or erythema Neuro: Denies: numbness in extremities, weakness in extremities, lack of coordination or difficulty walking [facility] ED PFSH: Medical History Establishing care with new doctor, encounter for Asthma exacerbation Social History Smoking and tobacco/nicotine status: never used tobacco/nicotine Alcohol intake: never Substance/Drug Use: never Female Reproductive History: Spontaneous abortions: No Physical Exam Const: COMMON NORMALS: no limitations and alert EXAM LIMITATIONS: no altered mental status HENMT: COMMON NORMALS: normocephalic, atraumatic, external ears normal and TM's normal bilaterally HEAD & SCALP: normocephalic and atraumatic FACE & SINUS: normal facial exam EXTERNAL EAR: Yes external ears normal TYMPANIC MEMBRANE: TM's normal bilaterally MOUTH: no muffled voice THROAT: posterior oropharynx normal and uvula midline; no uvular edema Eye: COMMON NORMALS: EOMs intact bilaterally, conjunctivae normal and no scleral icterus CONJUNCTIVA: Yes conjunctivae normal Neck/C-Spine: COMMON NORMALS: no JVD GENERAL: Yes normal visual inspection and Yes trachea midline Resp: OTHER: Frequent hacking cough, raspy dry voice, diminished posteriorly, no overt wheezing, no rales. Cardio: COMMON NORMALS: no JVD, regular rate and regular rhythm RATE: regular rate RHYTHM: regular rhythm GI: COMMON NORMALS: Soft to palpation and non-tender PALPATION: Yes Soft to palpation and No Guarding due to palpation present (GI) Extremity: COMMON NORMALS: normal to inspection Neuro: COMMON NORMALS: moves all extremities, no focal motor deficits and no sensory deficits noted SENSORIUM/ORIENTATION: Yes alert Psych: COMMON NORMALS: mental status grossly normal, Normal thought process present, cooperative, normal affect and speech normal SPEECH: Yes normal speech THOUGHT PROCESS: Normal thought process present Skin: COMMON NORMALS: no rashes or lesions noted, turgor normal and no jaundice GENERAL SKIN EXAM: no rashes or lesions noted and turgor normal Course ED course: Chest x-ray negative. Coughing improved with medications. Patient has adequate albuterol at home. Were going to start her on a steroid bolus dosing for 7 days. Patient has cough drops and more promethazine with dextromethorphan at home. Vital Signs: Vital signs: Vital Signs Temperature 98.3 F 12/26/23 08:37 Pulse Rate 83 12/26/23 08:37 Blood Pressure 130/79 12/26/23 08:37 Pulse Oximetry 100 12/26/23 08:37 Oxygen Delivery Me thod Room Air 12/26/23 08:37 MDM - URI/Sore Throat Medical Decision Making Differential diagnosis includes URI, asthma exacerbation, pneumonia, pneumothorax, pleural effusion, pulmonary edema, other. Overall suspect URI with acute bronchospasm. Patient has been taking albuterol every 4 hours or so. She still feels a little shaky from her last dose of albuterol and does not necessarily want any more. She does not look toxic but she does look symptomatic. Her oxygen is normal on room air. She reports she is tried Sudafed and other decongestants in the past and it seems to exacerbate her asthma. Therefore were going to take an alternative approach and use a combination of dextromethorphan, promethazine, prednisone, Tessalon Perles, and beta agonist to control her cough. Medical him get a chest x-ray because she has diminished breath sounds to make sure that I do not see any pneumothorax, effusions, edema or infiltrates. Lab Data Radiology Impressions Chest X-Ray 12/26/23 09:27 IMPRESSION: No acute findings. All radiology interpretation(s) finalized by discharge ED provider radiology interpretation(s): Chest x-ray read by radiologist. No acute findings including pneumothorax, infiltrates, effusions. Discharge Plan Discharge Patient Disposition: Home Clinical Impression: Viral URI with cough, Asthma exacerbation Condition: Stable Prescriptions: New prednisone 20 mg tablet 20 mg PO BID 7 Days Qty: 14 0RF No Action albuterol sulfate [Ventolin HFA] 90 mcg/actuation HFA aerosol inhaler 2 puff inhalation Q4H PRN (Reason: Shortness Of Breath) Qty: 8.5 0RF promethazine-DM 6.25-15 mg/5 mL syrup 10 ml PO Q6H PRN (Reason: cough) Qty: 118 0RF Excedrin Migraine 250-250-65 mg Tablet 2 tab PO Q6H PRN (Reason: Migraine Headache) Discharge Orders: Discharge ED (Routine); Ordered 12/26/23 Ordered By: Joaquin Long Referrals: Ermias Hsu DO [Primary Care Provider] - 1-3 days Discharge Diet: Usual diet Discharge Activity: Increase activity as tolerated Patient Instructions: Asthma (ED) Activity Restrictions/Additional Instructions: Please read all discharge instructions and abide by recommendations and return precautions. Make an appointment to follow-up with your primary care doctor as directed for follow-up. Return to ER if getting worse or other emergent symptoms. Coding Level of Care Code ED [place] Man for Diane Murphy
[2023-12-26] MEDS: promethazine-dm 6.25-15 mg/5 mL SYRUP (5 mL UD) 10 ML PO (09:59)
[2023-12-26] MEDS: benzonatate 100 mg Capsule 200 MG PO (09:59)
[2023-12-26] MEDS: predniSONE 20 mg Tablet 60 MG PO (09:59)
[2023-12-26] MEDS: HYDROcodone-acetaminophen 5-325 mg Tablet 1 TAB PO (09:59)
== END 2023-12-26 11:15 | disposition home or self-care (01) ==
PROVIDERS: Emergency Provider Emergency Medicine; PCP Family Medicine
DX: J06.9 Acute upper respiratory infection, unspecified (principal); J45.901 Unspecified asthma with (acute) exacerbation
CPT/HCPCS: 71046; 99283; J7512

== ENCOUNTER 2025-03-23 21:26 | Emergency (ER) | payer SELFPAY ==
[2025-03-23 21:45] VITALS: BP 123/83; PULSE 71; RESP 16; TEMP 36.8; O2SAT 100; BMI 47.8
[2025-03-23 23:13] LABS: Influenza A NEGATIVE (Negative); Influenza B NEGATIVE (Negative); Respiratory Syncytial Virus Ce NEGATIVE (Negative); SARS-CoV-2 PCR NEGATIVE (Negative)
[2025-03-23 23:39] LABS: Basophils % 0.3 %; Eosinophils # 0.2 10^3/uL (0.0-0.8); Eosinophils % 1.4 %; Hematocrit 38.6 % (36-47); Lymphocytes # 3.5 10^3/uL (0.8-4.8); Mean Corpuscular HGB Conc 32.6 g/dL (30-55); Mean Corpuscular Hemoglobin 29.3 pg (27-33); Mean Corpuscular Volume 89.8 fl (85-98); Mean Platelet Volume 11.5 fL (7.4-10.4); Monocytes # 0.8 10^3/uL (0.2-0.9); Neutrophils # 7.18 10^3/uL (1.8-7.7); Neutrophils % 60.9 %; Nucleated Red Blood Cells % 0 %; Platelet Count 237 10^3/cmm (157-399); Red Cell Distribution Width 13.6 % (12.1-15.1); White Blood Count 11.78 10^3/uL (3.29-11.43)
[2025-03-23 23:43] LABS: Bilirubin Urine Negative (Negative); Blood Urine Negative (Negative); Glucose Urine UA Negative (Normal); HCG Qualitative Urine. Negative (Negative); Ketones Urine Trace (Negative); Leukocyte Esterase Urine Negative (Negative); Nitrate Urine Negative (Negative); Protein Urine Negative (Negative); Urine Appearance Clear (CLEAR); Urine Color Yellow (Yellow); pH Urine 5.5 (5-7)
[2025-03-23 23:52] LABS: Add Urine Microscopic? YES; Bacteria Urine 1+ /hpf
[2025-03-23 23:53] LABS: Specific Gravity, Urine 1.037 (1.005-1.030)
[2025-03-23 23:55] LABS: Alanine Aminotransferase 42 U/L (0-33); Alkaline Phosphatase 90 U/L (35-105); Anion Gap 15.8 (5-19); Aspartate Amino Transferase 23 U/L (0-32); Blood Urea Nitrogen 17 mg/dL (6-20); Carbon Dioxide 21 mmol/L (22-29); Chloride 104 mmol/L (98-107); Creatinine Clr Calc Pharmacy 139.7117; Globulin 3.1 g/dL (1.3-4.6); Glomerular Filtration Rate 94.2 mL/min (90-130); Glucose 104 mg/dL (65-115); Lipase 31 U/L (13-60); Osmolality Calculated 286 mOsm/kg (285-295); Potassium 3.8 mmol/L (3.5-5.1); Sodium 137 mmol/L (136-145); Total Bilirubin 0.2 mg/dL (0.15-1.2); Total Protein 7.1 g/dL (6.6-8.7)
[2025-03-23] MEDS: ondansetron 2 mg/ML SDV 2 mL 4 MG IVP (23:58)
[2025-03-23] MEDS: sodium chloride 0.9% 1,000 ML 999 ML IV (23:59)
[2025-03-24 00:01] VITALS: BP 103/60; PULSE 66; O2SAT 98
--- NOTE | 2025-03-24 00:47 | W.ED.NAVMDI ---
HPI - Nausea/Vomiting/Diarrhea General: Chief complaint: Nausea/Vomiting/Diarrhea Stated complaint: n/v 3+days headache Time Seen by Provider: 03/23/25 23:14 History of Present Illness: Patient is a 39-year-old female without medical issues that reports to the emergency room with nausea, vomiting for 2 days since Wednesday, and diarrhea that started today. Patient had toast this morning, and promptly threw that up. She had nausea this p.m. No recent antibiotics. No camping. No fevers. Her abdominal pain is more of a retching feeling underneath both her ribs. Patient states she has not had this before. No sick contact. Associated nausea: Yes Associated symtoms: Reports nausea; Denies anxiety, change in vision, chest pain, headache(s) or palpitations Related Data Home Medications ?Medication ?Instructions ?Recorded ?Confirmed [id number] 250 2 tab PO Q6H PRN Migraine Headache 12/26/23 12/26/23 mg-250 mg-65 mg tablet (Excedrin Migraine) Previous Rx's ?Medication ?Instructions ?Recorded albuterol sulfate 90 mcg/actuation 2 puff inhalation Q4H PRN 01/26/23 aerosol inhaler (Ventolin HFA) Shortness Of Breath #8.5 grams promethazine-DM 6.25 mg-15 mg/5 mL 10 ml PO Q6H PRN cough #118 mL 12/24/23 oral syrup ondansetron 4 mg disintegrating 4 mg PO Q8H PRN nausea and 03/24/25 tablet vomiting 4 days #10 tabs Allergies Allergy/AdvReac Type Severity Reaction Status Date / Time Penicillins Allergy Mild RASH Verified 03/23/25 21:50 sertraline (From Zoloft) Allergy ADR-Nausea Verified 03/23/25 21:50 Sulfa (Sulfonamide Allergy ALGY-Hives Verified 03/23/25 21:50 Antibiotics) Review of Systems General: Reports: 10 or more systems reviewed and unremarkable except in HPI and below Const: Denies: fever(s) or chills Eyes: Denies: change in vision or blurry vision ENMT: Denies: throat pain Card: Denies: chest pain or palpitations GI: Reports: abdominal pain, nausea, vomiting and change in stool character : Denies: flank pain or difficulty voiding Musc: Denies: neck pain or back pain Skin/Breast: Denies: rash or pruritus Neuro: Denies: headache(s) or numbness in extremities Psych: Denies: anxiety or depression PFSH ED PFSH: Medical History Establishing care with new doctor, encounter for Asthma exacerbation Social History Smoking and tobacco/nicotine status: never used tobacco/nicotine Alcohol intake: never Substance/Drug Use: never Female Reproductive History: Spontaneous abortions: No Physical Exam Const: COMMON NORMALS: no acute distress, average body habitus, patient oriented x3, no limitations, healthy appearing, alert and well nourished GENERAL APPEARANCE: cooperative and comfortable HENMT: COMMON NORMALS: normocephalic and atraumatic; oral mucous membranes not moist HEAD & SCALP: normocephalic and atraumatic Lymph: LYMPHATIC: no lymphadenopathy noted Chest: COMMONS NORMALS: normal inspection of the chest and normal palpation of entire chest wall Resp: COMMON NORMALS: normal respiratory effort and clear to auscultation bilaterally AUSCULTATION: clear to auscultation bilaterally Cardio: COMMON NORMALS: regular rate, regular rhythm, S1 normal heart sound present and S2 normal heart sound present RATE: regular rate RHYTHM: regular rhythm HEART SOUNDS: S1 normal heart sound present and S2 normal heart sound present GI: COMMON NORMALS: Normal to inspection, nondistended, normoactive bowel sounds present, Soft to palpation and non-tender PALPATION: Yes Soft to palpation : COMMON NORMALS: Yes no CVA tenderness BLADDER/KIDNEY EXAM: Yes no CVA tenderness Back/Pelvis: COMMON NORMALS: no CVA tenderness Extremity: COMMON NORMALS: normal to inspection, full ROM and capillary refill normal Neuro: COMMON NORMALS: patient oriented x3 SENSORIUM/ORIENTATION: Yes alert Course Vital Signs: Vital signs: Vital Signs Temperature 98.2 F 03/23/25 21:45 Pulse Rate 66 03/24/25 00:01 Respiratory Rate 16 03/23/25 21:45 Blood Pressure 103/60 03/24/25 00:01 Pulse Oximetry 98 03/24/25 00:01 Oxygen Delivery Me thod Room Air 03/24/25 00:01 MDM - Nausea/Vomiting/Diarrhea Medical Decision Making Patient is a 39-year-old female that does not have medical issues that presented to the ED after nausea, vomiting, then diarrhea. Specific gravity is elevated, CO2 is decreased, ALT is slightly elevated. Exam/clinical information/history is consistent with gastroenteritis. Discussed differentials with patient including inflammatory bowel disease, infectious bowel disease, infectious diarrhea. Patient states understanding and will follow-up with primary care if having ongoing issues. She will advance her diet slowly. All of her questions were answered to her satisfaction. Lab Data 03/23/25 23:32 03/23/25 23:32 Laboratory Results WBC 11.78 10^3/uL (3.29-11.43) H 03/23/25 23:32 RBC 4.30 10^6/uL (3.85-5.65) 03/23/25: Hgb 12.60 g/dL (11.27-16.99) 03/23/25 23:32 Hct 38.6 % (36-47) 03/23/25: MCV 89.8 fl (85-98) 03/23/25 23: MCH 29.3 pg (27-33) 03/23/25 23: MCHC 32.6 g/dL (30-55) 03/23/25: RDW 13.6 % (12.1-15.1) 03/23/25: Plt Count 237 10^3/cmm (157-399) 03/23/25 23:32 MPV 11.5 fL (7.4-10.4) H 03/23/25 23:32 Neut % (Auto) 60.9 % 03/23/25 23: Lymph % (Auto) 30.0 % 03/23/25 23:32 Divide % (Auto) 7.0 % 03/23/25 23:32 Eos % (Auto) 1.4 % 03/23/25: Baso % (Auto) 0.3 % 03/23/25: Neut # (Auto) 7.18 10^3/uL (1.8-7.7) 03/23/25:32 Lymph # (Auto) 3.5 10^3/uL (0.8-4.8) 03/23/25: Divide # (Auto) 0.8 10^3/uL (0.2-0.9) 03/23/25 23:32 Eos # (Auto) 0.2 10^3/uL (0.0-0.8) 03/23/25 23:32 Baso # (Auto) 0.0 10^3/uL (0.0-0.1) 03/23/25 23:32 Nucleated RBC % (auto) 0 % 03/23/25 23:32 Nucleated RBCs # 0.0 /100WBC 03/23/25 23:32 Sodium 137 mmol/L (136-145) 03/23/25 23:32 Potassium 3.8 mmol/L (3.5-5.1) 03/23/25 23:32 Chloride 104 mmol/L (98-107) 03/23/25 23:32 Carbon Dioxide 21 mmol/L (22-29) L 03/23/25 23:32 Anion Gap 15.8 (5-19) 03/23/25 23:32 BUN 17 mg/dL (6-20) 03/23/25 23:32 Creatinine 0.7 mg/dL (0.5-0.9) 03/23/25 23:32 GFR Calculation 94.2 mL/min (90-130) 03/23/25 23:32 Glucose 104 mg/dL (65-115) 03/23/25 23:32 Calculated Osmolality 286 mOsm/kg (285-295) 03/23/25 23:32 Calcium 9.0 mg/dL (8.5-10.5) 03/23/25 23:32 Total Bilirubin 0.2 mg/dL (0.15-1.2) 03/23/25 23:32 AST 23 U/L (0-32) 03/23/25 23:32 ALT 42 U/L (0-33) H 03/23/25 23:32 Alkaline Phosphatase 90 U/L (35-105) 03/23/25 23:32 Total Protein 7.1 g/dL (6.6-8.7) 03/23/25 23:32 Albumin 4.0 g/dL (3.5-5.2) 03/23/25 23:32 Globulin 3.1 g/dL (1.3-4.6) 03/23/25 23:32 Lipase 31 U/L (13-60) 03/23/25 23:32 HCG, Qual Negative (Negative) 03/23/25 23:12 Urine Color Yellow (Yellow) 03/23/25 23:12 Urine Appearance Clear (CLEAR) 03/23/25 23:12 Urine pH 5.5 (5-7) 03/23/25 23:12 Ur Specific [place] 1.037 (1.005-1.030) H 03/23/25 23:12 Urine Protein Negative (Negative) 03/23/25 23:12 Urine Glucose (UA) Negative (Normal) 03/23/25 23:12 Urine Ketones Trace (Negative) 03/23/25 23:12 Urine Blood Negative (Negative) 03/23/25 23:12 Urine Nitrate Negative (Negative) 03/23/25 23:12 Urine Bilirubin Negative (Negative) 03/23/25 23:12 Urine Urobilinogen 1.0 mg/dL (Negative) 03/23/25 23:12 Ur Leukocyte Esterase Negative (Negative) 03/23/25 23:12 Urine RBC 3-5 /hpf (0-2) 03/23/25 23:12 Urine WBC 6-10 /hpf (0-5) 03/23/25 23:12 Ur Squamous Epith Cells 6-10 /hpf (0-5) 03/23/25 23:12 Amorphous Sediment Not Reportable 03/23/25 23:12 Urine Bacteria 1+ /hpf (NONE) H 03/23/25 23:12 Hyaline Casts 3.30 /lpf 03/23/25 23:12 Influenza A (PCR) Negative (Negative) 03/23/25 21:53 Influenza Type B (PCR) Negative (Negative) 03/23/25 21:53 RSV (PCR) Negative (Negative) 03/23/25 21:53 SARS-CoV-2 (PCR) Negative (Negative) 03/23/25 21:53 All radiology interpretation(s) finalized by discharge Discharge Plan Discharge Patient Disposition: Home Clinical Impression: Gastroenteritis, Dehydration, Elevated ALT measurement, Metabolic acidosis Condition: Stable Prescriptions: New ondansetron 4 mg tablet,disintegrating 4 mg PO Q8H PRN (Reason: nausea and vomiting) 4 Days Qty: 10 0RF No Action albuterol sulfate [Ventolin HFA] 90 mcg/actuation HFA aerosol inhaler 2 puff inhalation Q4H PRN (Reason: Shortness Of Breath) Qty: 8.5 0RF promethazine-DM 6.25-15 mg/5 mL syrup 10 ml PO Q6H PRN (Reason: cough) Qty: 118 0RF Excedrin Migraine 250-250-65 mg Tablet 2 tab PO Q6H PRN (Reason: Migraine Headache) Discharge Orders: Discharge ED (Routine); Ordered 03/24/25 Ordered By: Ana Bejarano Referrals: Ermias Hsu DO [Primary Care Provider, [facility]] Discharge Diet: As Directed and Clear Liquid Discharge Activity: Resume usual activity Patient Instructions: [place] Diet - Adult, Full Liquid Diet, Clear Liquid Diet (ED), Gastroenteritis (ED) Activity Restrictions/Additional Instructions: Clear fluid times first 24 hours. This can then be advanced to full liquid diet after 24 hours if clear fluid is tolerated. After 48 hours, this may be advance to a bland diet. Please return to ED if you have worsening symptoms, fever, inability to pass gas. Please follow-up with your primary care physician regarding this ED visit with the concerns as I discussed, or ongoing issues. Stand Alone Forms: Work/School Release Print Language: [place] Coding Level of Care Code ED [employer] for Diane Murphy
[2025-03-24] MEDS: ondansetron hcl ODT 4 mg Tab PO (01:15)
[2025-03-24 01:51] VITALS: BP 107/56; PULSE 66; O2SAT 97
== END 2025-03-24 01:40 | disposition home or self-care (01) ==
PROVIDERS: Emergency Medicine; Emergency Provider Physician Assistant; PCP Family Medicine
DX: K52.9 Noninfective gastroenteritis and colitis, unspecified (principal); E86.0 Dehydration; R74.01 Elevation of levels of liver transaminase levels; E87.20 Acidosis, unspecified; Z11.52 Encounter for screening for COVID-19
CPT/HCPCS: 36415; 80053; 81001; 81025; 83690; 85025; 87637; 96361; 96374; 99284; J2405; J7030; Q0162

== ENCOUNTER → 2025-08-07 11:31 | Outpatient (BNVA) | payer SELFPAY | PROVIDERS: PCP Family Medicine | DX: R52 Pain, unspecified (principal) | CPT/HCPCS: 87400; 87426 ==